=== PATIENT | male | born 1945 | race Caucasian/White ===

== ENCOUNTER → 2018-05-03 | Outpatient (CLI) | payer MEDICARE ==
[2018-05-03 11:59] LABS: HGB 15.3 gm/dL (13.0-17.5); MCH 30.2 pg (25.0-35.0); MCHC 32.5 g/dL (31.0-37.0); MCV 92.9 fL (80.0-100.0); Mean Platelet Volume 6.7; Platelet Count 227 k/uL (150-450); RBC 5.06 m/uL (4.30-5.90); WBC 4.8 k/uL (3.8-10.6)
[2018-05-03 12:00] LABS: Appearance,Urine Clear (Clear); Bilirubin,Urine Negative (Negative); Blood,Urine Negative (Negative); Color,Urine Yellow; Glucose,Urine (UA) Negative (Negative); Ketones,Urine Negative (Negative); Leukocyte Esterase,Urine Negative (Negative); Nitrite,Urine Negative (Negative); PH, Urine 5.5 (5.0-8.0); Partial Thromboplastin Time 24.9 sec (22.0-30.0); Protein,Urine Negative (Negative); Prothrombin Time 9.8 sec (9.0-12.0); Specific Gravity,Urine 1.023 (1.001-1.035); Urobilinogen,Urine <2.0 mg/dL (<2.0)
[2018-05-03 12:10] LABS: ALT 34 U/L (21-72); AST 24 U/L (17-59); Albumin 3.9 g/dL (3.5-5.0); Alkaline Phosphatase 67 U/L (38-126); Anion Gap 8 mmol/L; Blood Urea Nitrogen 20 mg/dL (9-20); Calcium 9.4 mg/dL (8.4-10.2); Carbon Dioxide 29 mmol/L (22-30); Chloride 104 mmol/L (98-107); Glucose 90 mg/dL (74-99); Potassium 4.4 mmol/L (3.5-5.1); Sodium 141 mmol/L (137-145); Total Bilirubin 0.7 mg/dL (0.2-1.3); Total Protein 6.4 g/dL (6.3-8.2)
== END | disposition home or self-care (01) ==
LOC: LABPAT 10:11
PROVIDERS: ATTEND Orthopaedic Surgery
DX: Z01.812 Encounter for preprocedural laboratory examination (principal); Z79.01 Long term (current) use of anticoagulants
CPT/HCPCS: 36415; 80053; 81003; 85027; 85610; 85730; 87070

== ENCOUNTER 2018-05-30 10:37 | Inpatient (IN) | payer MEDICARE ==
[2018-05-11 11:35] VITALS: BMI 28.7
[~2018-05-30 10:37] MED LIST: ACETAMINOPHEN TAB 500 MG TAB PO ONE; DEXAMETHASONE SOD PHOSPHATE 10 MG/ML 1 ML VIAL IV ONE; HYDROmorphone 0.5 MG/0.5 ML SYRINGE IVP PRN; MELOXICAM 7.5 MG TAB PO ONE; MIDAZOLAM 2 MG/2 ML VIAL IV PRN; ONDANSETRON 4 MG/2 ML VIAL IVP ONE; ROPIVACAINE 246.25 MG, EPINEPHrine 0.5 MG, KETOROLAC 30 MG, cloNIDine HCL/PF 80 MCG, WA... MISCELLANE ONE; TRANEXAMIC ACID 1,000 MG in SODIUM CHLORIDE 0.9% 50 ML IVPB ONE; ceFAZolin IN SWFI 2 GM/20 ML SYRINGE IVP ONE
[2018-05-30] MEDS ORDERED: ROPIVACAINE 246.25 MG, EPINEPHrine 0.5 MG, KETOROLAC 30 MG, cloNIDine HCL/PF 80 MCG, WA... MISCELLANE ONE ×5 (10:40)
[2018-05-30] MEDS ORDERED: LIDOCAINE 1% 20 ML VIAL (10MG/ML) FOR IV START INTRADERMA ONE (13:31)
[2018-05-30] MEDS: LACTATED RINGERS 1,000 ML IV SCH (13:32)
[2018-05-30 13:35] LABS: Glucose,Whole Blood 97 mg/dL (75-99)
[2018-05-30] MEDS ORDERED: MIDAZOLAM 2 MG/2 ML VIAL IVP ONE (13:46)
[2018-05-30] MEDS ORDERED: fentaNYL (PF) 50 MCG/ML 2 ML AMP IVP ONE (13:46)
[2018-05-30] MEDS ORDERED: MAGNESIUM HYDROXIDE 2,400 MG/10 ML CUP PO PRN (14:08)
[2018-05-30] MEDS ORDERED: HYDROmorphone 1 MG/ML 1 ML SYRINGE IVP PRN ×3 (14:08)
[2018-05-30] MEDS ORDERED: NA PHOS,M-B/NA PHOS,DI-BA 133 ML ENEMA RECTAL PRN (14:08)
[2018-05-30] MEDS ORDERED: HYDROcodone/APAP 5-325MG 1 EACH TAB PO PRN ×2 (14:08)
[2018-05-30] MEDS ORDERED: hydrOXYzine PAMOATE 25 MG CAP PO PRN (14:08)
[2018-05-30] MEDS ORDERED: BISACODYL 10 MG SUPP RECTAL PRN (14:08)
[2018-05-30] MEDS ORDERED: NALOXONE 0.4 MG/ML 1 ML VIAL IV PRN (14:08)
[2018-05-30] MEDS ORDERED: ONDANSETRON 4 MG/2 ML VIAL IVP PRN (14:08)
[2018-05-30] MEDS ORDERED: DIAZEPAM 5 MG TAB PO PRN ×2 (14:08)
[2018-05-30] MEDS ORDERED: ROPIVACAINE 1,100 MG, SODIUM CHLORIDE 0.9% 500 ML 330 ML MISCELLANE PRN ×2 (14:12)
--- NOTE | 2018-05-30 14:14 | P.ONQ ---
Anesthesiology Proc Note - PNB - Peripheral Nerve Block Performed Right Adductor Canal Infusion Time Out Performed: Yes Procedure Start Time: 13:44 Indication: Acute Post-Operative Pain, Analgesia Specifically requested for management of pain by DrMaryam: Man Bernal Sedation Type: Sedate with meaningful contact maintained Preparation: Sterile Prep Position: Supine Catheter Depth at Skin (cm): 8 Catheter: Indwelling Needle Types: Other (see comment) (Pajunk) Needle Size: 100mm (4") Needle Gauge: 18 Technique: Ultrasound Injectate: 0.5% Ropivacaine (see comment for volume) (20 cc) Blood Aspirated: No Pain Paresthesia on Injection Noted: No Resistance on Injection: Normal Events: Uneventful and Well Tolerated
[2018-05-30] MEDS ORDERED: SODIUM CHLORIDE 0.9% 100 ML BAG ONE (14:39)
[2018-05-30] MEDS ORDERED: TRANEXAMIC ACID 1,000 MG/10 ML VIAL ONE (14:39)
[2018-05-30] MEDS ORDERED: fentaNYL (PF) 50 MCG/ML 2 ML AMP ONE (14:39)
[2018-05-30] MEDS ORDERED: ePHEDrine SULFATE/0.9% NACL/PF 50 MG/5 ML SYRINGE IV ONE (14:39)
[2018-05-30] MEDS ORDERED: MIDAZOLAM 2 MG/2 ML VIAL ONE (14:39)
[2018-05-30] MEDS ORDERED: PROPOFOL 10 MG/ML 20 ML VIAL IV ONE (14:39)
[2018-05-30] MEDS ORDERED: ceFAZolin 3,000 MG in SODIUM CHLORIDE 0.9% IRRIGATIO 3,000 ML IRRIGATION ONE (15:08)
[2018-05-30] MEDS ORDERED: LACTATED RINGERS 1,000 ML IV ONE (15:44)
--- NOTE | 2018-05-30 15:50 | P.OP ---
Date of Procedure: 05/30/18 Preoperative Diagnosis: Severe osteoarthritis right knee Postoperative Diagnosis: Severe osteoarthritis right knee Procedure(s) Performed: Right total knee arthroplasty Implants: Camilo [employer] Nephew Oxinium femoral component size 7, right Camilo [employer] Nephew Ava II right nonporous tibial baseplate size 7 Camilo [employer] Nephew size 11 mm Legion XLPE dished articular insert, size 7-8 Camilo [employer]hew Ava II resurfacing patellar component, 35 mm All components were cemented using Galo bone cement.. The articulation is Oxinium on polyethylene. Anesthesia: spinal Surgeon: Man Bernal Agile Tester #1: Arely Daly Estimated Blood Loss (ml): 50 Pathology: other (Bone and cartilage) Condition: stable Disposition: PACU Indications for Procedure: After failure of conservative treatment we discussed the surgical and nonsurgical treatment options at length. Patient wishes to proceed with a total knee arthroplasty. Complications specific to this procedure were discussed at length, including but not limited to infection, bleeding, stiffness , and nerve injury. Patient is aware of all these complications and informed consent was obtained Operative Findings: The operative findings are consistent with severe osteoarthritis of the right knee Description of Procedure: Patient was seen in the preoperative area consent was reviewed and operative site was marked with a skin marker. An adductor canal pain catheter was placed by anesthesia in the preoperative area. Patient was then brought to the operating room and given preoperative antibiotics intravenously. A spinal anesthetic was administered by the anesthesia department. A tourniquet was placed on the upper thigh and the lower extremity was prepped and draped in usual sterile fashion. A gram of transexamic acid was given. A universal timeout was then performed which confirmed the patient's name, surgical site, ALLERGIES, and consent. The lower extremity was then exsanguinated and tourniquet was inflated to 250 mmHg. A standard and anterior midline approach to the knee was performed. The skin and subcutaneous tissue was dissected down to the patellar tendon. A medial parapatellar arthrotomy was then performed. The knee was then extended, the patellar was everted, and the knee was again flexed. Anterior horns of both menisci were excised, and a release was performed to the posterior medial aspect of the knee. On gross visual inspection, there was complete loss of articular cartilage in the medial and patellofemoral joint spaces. There was also significant cartilage damage in the lateral compartment. There were multiple periarticular osteophytes which were then removed with a Ronguer. The femoral canal was then opened with the appropriate drill, and the intramedullary femoral cutting guide was then placed and set for 4 of valgus. The distal femoral cutting block was then pinned in place, and the distal femur was then cut. The cutting block was then removed and the cut was checked for flatness. Next, the sizing guide was then placed and set for 3 external rotation based off of the epicondylar axis and Whitesides line. After the femur was sized, the appropriate 4-in-1 cutting block was then pinned in place. The anterior condyles were cut without notching. The posterior and chamfer cuts were performed while protecting the collateral ligaments. The cutting block was then removed, and the femoral canal was plugged with autologous bone. Attention was then directed to the tibia. The remaining ACL was removed with a Ronguer, and the tibia was then gently subluxed forward with a large bent knee retractor. Any remaining menisci was excised. The posterior lateral corner was cauterized in order to cauterize the lateral geniculate artery. The extra medullary tibial cutting guide was then placed, set for the appropriate rotation , slope, and depth of resection. The proximal tibia cutting guide was then pinned in place. Proximal tibia was then cut and sized. Next trials were then placed with the appropriate-sized insert. The knee was able to fully extend and flex to 130 and was stable throughout all range of motion. The knee was then extended, patella everted. Patella was then measured, and then using an osteotomy guide, the patella was cut at the appropriate level. The patella was then measured and drilled and the patella trial was then placed. The knee was then taken through range of motion with the patella trial and the patella tracked normally. The knee was then extended patella trial was then removed and the patella was everted. Knee was then flexed and lug holes were drilled through the femoral trial and the femoral trial was then removed. The tibial was then exposed, and the tibial broach guide was then pinned in place after it was set for the appropriate rotation to allow for the most coverage without overhang. The tibia was then reamed and broached. The cut surfaces of bone were then irrigated with pulsatile lavage. The posterior structures were injected with the ropivacaine solution. The knee was also irrigated with Irrisept solution. The components were then opened, the cement was mixed, and the components were then cemented in place. The cement was allowed to harden with the knee in full extension. While the cement was hardening, the remaining soft tissues were then injected with a ropivacaine solution, which consisted of 246.25 mg of ropivacaine, 0.5 mg of epinephrine, 30 mg of Toradol, 80 g of clonidine, and 48.45 mL of sterile water, for a total of 100 mL of fluid injected. After the cemented hardened. The tourniquet was released, and hemostasis was obtained. A second gram of transexamic acid was given. The knee was again irrigated. The knee was again taken through range of motion and found to be stable throughout all range of motion of 0-130 , and the patella tracked normally. The fascia was then closed with #2 strata fix suture. The subcutaneous tissue was closed with 3-0 Vicryl and 3-0 strata fix. Dermabond glue was used for the skin and placed with the knee in flexion. The patient was placed in a sterile silver dressing. Patient was then transferred to recovery room in stable condition. The tourist information assistant SETH Orta was required due the complexity surgery and the need for a skilled operations manager assistant. She assisted in positioning, draping, retraction, and closure of the wound.
--- NOTE | 2018-05-30 17:33 | XR ---
PROCEDURE: XR knee limited RT - 2 views DATE AND TIME: 05/30/2018 4:46 PM CLINICAL INDICATION: PHH Evaluation for Postop abnormality and alignment TECHNIQUE: Portable AP and crosstable lateral views COMPARISON: None FINDINGS: The TKR appears anatomic in its positioning and alignment. Postprocedure change appreciated . No unexpected findings. IMPRESSION: Postoperative.
[2018-05-30] MEDS: SODIUM CHLORIDE 0.9% 1,000 ML IV SCH (17:45)
[2018-05-30] MEDS ORDERED: SENNOSIDES-DOCUSATE SODIUM 1 EACH TAB PO SCH (21:00)
[2018-05-30] MEDS: ASPIRIN 325 MG TAB PO SCH (21:20)
[2018-05-30] MEDS: ceFAZolin IN SWFI 2 GM/20 ML SYRINGE IVP SCH (21:21)
[2018-05-31] MEDS: ceFAZolin IN SWFI 2 GM/20 ML SYRINGE IVP SCH (05:24)
[2018-05-31] MEDS: SODIUM CHLORIDE 0.9% 1,000 ML IV SCH (05:39)
[2018-05-31] MEDS: LACTATED RINGERS 1,000 ML IV SCH (05:41)
[2018-05-31] MEDS: ASPIRIN 325 MG TAB PO SCH (07:17)
[2018-05-31] MEDS ORDERED: MELOXICAM 7.5 MG TAB PO SCH (09:00)
[2018-05-31 09:01] LABS: Basophils % (A) 0 %; Eosinophils % (A) 0 %; HCT 41.3 % (39.0-53.0); HGB 13.5 gm/dL (13.0-17.5); Lymphocytes # (A) 1.1 k/uL (1.0-4.8); Lymphocytes % (A) 11 %; MCH 30.4 pg (25.0-35.0); MCHC 32.6 g/dL (31.0-37.0); MCV 93.5 fL (80.0-100.0); Mean Platelet Volume 7.2; Monocytes # (A) 0.6 k/uL (0-1.0); Monocytes % (A) 6 %; Neutrophils % (A) 83 %; Platelet Count 214 k/uL (150-450); RBC 4.42 m/uL (4.30-5.90); RDW 13.6 % (11.5-15.5); WBC 10.8 k/uL (3.8-10.6)
[2018-05-31 09:16] VITALS: BP 128/76; PULSE 74; RESP 18; TEMP 98.1
--- NOTE | 2018-05-31 11:59 | P.PN ---
Progress Note - Text Anesthesia POD 1. Patient is status post right TKR under spinal anesthesia with a right adductor canal catheter placed for postoperative pain relief. With ropivacaine 0.2% running at 8 cc's per hour, the patient's VAS is (1, 4). Catheter site is clean dry and intact.
[2018-05-31] MEDS ORDERED: VIT A,C & E-LUTEIN-MINERALS 1 EACH TAB PO SCH (12:00)
--- NOTE | 2018-05-31 13:05 | P.CONS ---
History of Present Illness - Reason for Consult Consult date: 05/31/18 Medical management - History of Present Illness This is a 72-year-old male patient of Dr. Bernard with past medical history of COPD, gastroesophageal reflux disease, hyperlipidemia, borderline diabetes, osteoarthritis. Patient has been admitted to the hospital under the care of Dr. Bernal status post right total knee arthroplasty. Patient has Q pump in place for pain control. Patient states his pain is well controlled at this time. He has worked with physical therapy and has done well with this and is scheduled for discharge home today. His breathing status is currently stable and there is no COPD exacerbation. Vital signs are stable, patient has been afebrile, pulse ox 93% on room air. Review of Systems All systems: negative Constitutional: Denies chills, Denies fatigue, Denies fever, Denies lethargy, Denies malaise, Denies poor appetite, Denies sweats, Denies weight loss Eyes: denies blurred vision, denies pain Ears, nose, mouth and throat: Denies headache, Denies sore throat Cardiovascular: Denies chest pain, Denies decreased exercise tolerance, Denies dyspnea on exertion, Denies lightheadedness, Denies shortness of breath, Denies syncope Respiratory: Denies cough, Denies cough with sputum, Denies dyspnea, Denies excessive sputum, Denies hemoptysis, Denies home oxygen, Denies wheezing Gastrointestinal: Denies abdominal pain, Denies diarrhea, Denies loss of appetite, Denies nausea, Denies vomiting Genitourinary: Denies dysuria Musculoskeletal: Denies frequent falls, Denies gait dysfunction, Denies myalgias Integumentary: Reports wounds, Denies pruritus, Denies rash Neurological: Denies numbness, Denies weakness Psychiatric: Denies anxiety, Denies depression Endocrine: Denies fatigue, Denies weight change Past Medical History Past Medical History: COPD, GERD/Reflux, Hyperlipidemia, Osteoarthritis (OA) Additional Past Medical History / Comment(s): borderline diabetes,Other HX: Arthiritis bilateral knees and hands, R arm fx at age 5yrs, varicose veins. History of Any Multi-Drug Resistant Organisms: None Reported Past Surgical History: Heart Catheterization, Orthopedic Surgery Additional Past Surgical History / Comment(s): Right total knee arthroplasty, COLONOSCOPY with benign polypectomy, ccath-normal, circ, vasectomy,lt hip replacement Past Anesthesia/Blood Transfusion Reactions: No Reported Reaction Additional Past Anesthesia/Blood Transfusion Reaction / Comm: no hx blood transfusion Past Psychological History: No Psychological Hx Reported Additional Psychological History / Comment(s): Pt resides with his spouse. He is independent. He uses no assistive device. He drives. Smoking Status: Former smoker Past Alcohol Use History: Occasional Additional Past Alcohol Use History / Comment(s): QUIT SMOKING 05/2014,smoked approx 40 yrs-1ppd. Patient uses marijuana many years ago but none recently. He drinks alcohol occasionally. He served in [employer]. Past Drug Use History: None Reported - Past Family History Brother(s) Family Medical History: Myocardial Infarction (IA) Additional Family Medical History / Comment(s): Patient has 1 brother that at age 46 from a massive myocardial infarction. He states he had obesity and also diabetes. He has one older brother with no major medical problems. Patient does not have any sisters. Mother Family Medical History: Osteoarthritis (OA) Additional Family Medical History / Comment(s): Mother had colitis. She at age 92 yrs. Father Family Medical History: Myocardial Infarction ([place]) Additional Family Medical History / Comment(s): Father had a pacer and history of dementia. He around age 82-84yrs. Son(s) Additional Family Medical History / Comment(s): Patient has 4 sons with no major medical problems. Medications and Allergies Home Medications Medication Instructions Recorded Confirmed Type Aspirin 81 mg PO DAILY 05/15/15 05/30/18 History Atorvastatin [Lipitor] 40 mg PO DAILY 05/15/15 05/30/18 History Tiotropium [place] [Spiriva] 1 cap INHALATION RT-DAILY 05/15/15 05/30/18 History Ascorbic Acid [Vitamin C] 1,000 mg PO DAILY 05/11/18 05/30/18 History Budesonide/Formoterol Fumarate 2 puff INHALATION RT-BID 05/11/18 05/30/18 History [Symbicort 160-4.5 Mcg Inhaler] Calcium Citrate/Vitamin D3 1 tab PO BID 05/11/18 05/30/18 History [Calcitrate + Vit D Caplet] Multivitamins, Thera [Multivitamin 1 tab PO DAILY 05/11/18 05/30/18 History (formulary)] Vitamin E 100 unit PO DAILY 05/11/18 05/30/18 History Vits A,C,E/Lutein/Minerals 1 tab PO DAILY 05/11/18 05/30/18 History [Ocuvite with Lutein Tablet] Allergies Allergy/AdvReac Type Severity Reaction Status Date / Time No Known Allergies Allergy Verified 05/30/18 16:10 Physical Exam Vitals: Vital Signs Temp Pulse Pulse Resp BP Pulse Ox 05/31/18 07:00 98.1 F 74 18 128/76 93 L 05/31/18 00:25 97.9 F 81 16 124/68 92 L 05/30/18 19:08 78 168/95 90 L 05/30/18 18:55 89 144/92 89 L 05/30/18 18:38 81 153/102 88 L 05/30/18 18:23 86 148/78 88 L 05/30/18 18:08 84 142/83 91 L 05/30/18 17:53 83 138/91 94 L 05/30/18 17:38 97.9 F 82 18 121/78 92 L 05/30/18 16:56 77 16 124/70 96 05/30/18 16:41 74 16 126/68 100 05/30/18 16:26 97.5 F L 75 17 108/59 96 05/30/18 14:10 77 18 141/73 96 05/30/18 13:11 98.4 F 79 18 153/87 94 L Intake and Output 05/30/18 05/31/18 05/31/18 22:59 06:59 14:59 Intake Total 863.5 600 Output Total 50 Balance 813.5 600 Intake: IV 101 Intake, IV Titration 262.5 600 Amount Sodium Chloride 0.9% 1, 262.5 600 000 ml @ 75 mls/hr IV . [id number] CARLITOS Rx#:[id number] Oral 500 Output: Estimated Blood Loss 50 Other: Voiding Method Toilet # Voids 1 3 Weight 90.718 kg Gen: This is a 72-year-old male. He is sitting up in a recliner the bedside and appears to be comfortable and in no acute distress. HEENT: Head is atraumatic, normocephalic. Pupils equal, round. Sclerae is anicteric. NECK: Supple. No JVD. No lymphadenopathy. No thyromegaly. LUNGS: Clear to auscultation. No wheezes or rhonchi. No intercostal retractions. HEART: Regular rate and rhythm. No murmur. ABDOMEN: Soft. Bowel sounds are present. No masses. No tenderness. EXTREMITIES: No pedal edema. No calf tenderness. NEUROLOGICAL: Patient is awake, alert and oriented x3. Cranial nerves 2 through 12 are grossly intact. Results CBC & Chem 7: 05/31/18 07:06 Labs: Abnormal Lab Results - Last 24 Hours (Table) 05/31/18 Range/Units 07:06 WBC 10.8 H (3.8-10.6) k/uL Neutrophils # 9.0 H (1.3-7.7) k/uL Assessment and Plan Plan: 1. Osteoarthritis status post right total knee arthroplasty in the care of Dr. Bernal. Continue current pain management, physical therapy, activity, DVT prophylaxis is aspirin. Patient is scheduled for discharge later today. He has had no postop complications. 2. COPD stable without exacerbation. 3. Hyperlipidemia. 4. Borderline diabetes. Discharge plan: Home with [facility] Impression and plan of care have been directed as dictated by the signing physician. Aracelis Goyal nurse practitioner acting as scribe for signing physician.
--- NOTE | 2018-05-31 14:03 | P.DS ---
Providers Date of admission: 05/30/18 12:32 Expected date of discharge: 05/31/18 Attending physician: Man Bernal Consults: 05/30/18 14:08 Consult Physician Routine Consulting Provider: Lily Rooney Consult Reason/Comments: medical management Do you want consulting provider notified?: Yes Primary care physician: Ida Burrwood - Discharge Diagnosis(es) (1) Primary osteoarthritis of right knee Current Visit: Yes Status: Acute (2) S/P total knee arthroplasty Current Visit: Yes Status: Acute Hospital Course: This is a 72-year-old male with known history of degenerative arthritis of the right knee. The patient presents for evaluation. After discussion and consideration patient elects to proceed with total knee arthroplasty. The patient is seen preoperatively by Dr. Bernal and medically cleared for surgery by their primary care physician. Patient is admitted to [facility] on 05/30/2018 for total knee arthroplasty. The procedures performed without complication or sequelae. The patient is doing well postoperatively. Labs and vital signs are stable on day of discharge. On day of discharge patient's knee incision is healing well. There is minimal erythema. There is no drainage noted at this time. There is minimal soft tissue swelling to the knee. Patient has full foot and ankle motion without difficulty or pain. Neurovascular status to the right lower extremity is intact. Patient is discharged home in good condition. Please see med rec for accurate list of home medications. Plan - Discharge Summary Discharge Rx Participant: Yes New Discharge Prescriptions: New Aspirin 325 mg PO BID #60 tab HYDROcodone/APAP 5-325MG [[place] 5-325] 1 - 2 tab PO Q4-6H PRN #84 tab PRN Reason: Pain Sennosides [Senokot] 1 tab PO BID #60 tablet No Action Tiotropium [place] [Spiriva] 1 cap INHALATION RT-DAILY Atorvastatin [Lipitor] 40 mg PO DAILY Aspirin 81 mg PO DAILY Budesonide/Formoterol Fumarate [Symbicort 160-4.5 Mcg Inhaler] 2 puff INHALATION RT-BID Calcium Citrate/Vitamin D3 [Calcitrate + Vit D Caplet] 1 tab PO BID Multivitamins, Thera [Multivitamin (formulary)] 1 tab PO DAILY Ascorbic Acid [Vitamin C] 1,000 mg PO DAILY Vits A,C,E/Lutein/Minerals [Ocuvite with Lutein Tablet] 1 tab PO DAILY Vitamin E 100 unit PO DAILY Discharge Medication List Aspirin 81 mg PO DAILY 05/15/15 [History] Atorvastatin [Lipitor] 40 mg PO DAILY 05/15/15 [History] Tiotropium [place] [Spiriva] 1 cap INHALATION RT-DAILY 05/15/15 [History] Ascorbic Acid [Vitamin C] 1,000 mg PO DAILY 05/11/18 [History] Budesonide/Formoterol Fumarate [Symbicort 160-4.5 Mcg Inhaler] 2 puff INHALATION RT-BID 05/11/18 [History] Calcium Citrate/Vitamin D3 [Calcitrate + Vit D Caplet] 1 tab PO BID 05/11/18 [ History] Multivitamins, Thera [Multivitamin (formulary)] 1 tab PO DAILY 05/11/18 [History ] Vitamin E 100 unit PO DAILY 05/11/18 [History] Vits A,C,E/Lutein/Minerals [Ocuvite with Lutein Tablet] 1 tab PO DAILY 05/11/18 [History] Aspirin 325 mg PO BID #60 tab 05/31/18 [Rx] HYDROcodone/APAP 5-325MG [[place] 5-325] 1 - 2 tab PO Q4-6H PRN #84 tab 05/31/18 [ Rx] Sennosides [Senokot] 1 tab PO BID #60 tablet 05/31/18 [Rx] Follow up Appointment(s)/Referral(s): Ida Bernard MD [Primary Care Provider] - 1 Week [facility], [NON-STAFF] - Man Bernal DO [Doctor of Osteopathic Medicine] - 2 Weeks Activity/Diet/Wound Care/Special Instructions: Please call [facility] once home to arrange delivery of CPM: . Weightbearing as tolerated with walker Leave dressing intact. Dressing may be removed by home care nurse in 10 days. May shower with dressing on. Follow-up with [facility] in 2 weeks, please call with any questions or concerns [phone].
[2018-05-31] MEDS ORDERED: SYMBICORT 160-4.5 MCG INHALER INHALATION SCH (20:00)
[2018-05-31] MEDS ORDERED: ATORVASTATIN 40 MG TAB PO SCH (21:00)
[2018-06-01] MEDS ORDERED: IPRATROPIUM 0.5 MG/2.5 ML NEBU INHALATION SCH (08:00)
== END 2018-05-31 15:23 | disposition home or self-care (01) | DRG 470 ==
LOC: 2ORMAIN 12:32 → 4SSUR 16:29
PROVIDERS: ADMIT Orthopaedic Surgery; ATTEND Orthopaedic Surgery
PROC: 0SRC069 Replacement of Right Knee Joint with Oxidized Zirconium on Polyethylene Synthetic Substitute, Cemented, Open Approach (ICD-10-PCS; principal; 2018-05-30 14:45)
DX: M17.11 Unilateral primary osteoarthritis, right knee (principal); R73.03 Prediabetes; E78.5 Hyperlipidemia, unspecified; J44.9 Chronic obstructive pulmonary disease, unspecified; K21.9 Gastro-esophageal reflux disease without esophagitis; Z79.82 Long term (current) use of aspirin; Z79.51 Long term (current) use of inhaled steroids; Z87.891 Personal history of nicotine dependence; Z79.899 Other long term (current) drug therapy; Z82.49 Family history of ischemic heart disease and other diseases of the circulatory system; Z83.3 Family history of diabetes mellitus
CPT/HCPCS: 85025; 88300

== ENCOUNTER → 2021-05-09 | Outpatient (CLI) | payer MEDICARE ==
--- NOTE | 2021-05-09 16:25 | US ---
EXAMINATION TYPE: US venous doppler duplex LE LT DATE OF EXAM: 05/09/2021 4:09 PM COMPARISON: NONE CLINICAL HISTORY: R60.9 EDEMA. Edema. No hx of DVT. Patient takes baby aspirin. SIDE PERFORMED: Left TECHNIQUE: The lower extremity deep venous system is examined utilizing real time linear array sonog antonio with graded compression, doppler sonography and color-flow sonography. VESSELS IMAGED: Common Femoral Vein Deep Femoral Vein Greater Saphenous Vein * Femoral Vein Popliteal Vein Small Saphenous Vein * Proximal Calf Veins (* superficial vessels) Left Leg: No evidence of DVT in veins imaged at this time. Satisfactory blood flow, phasicity, and compressibility in the left lower extremity. IMPRESSION: No ultrasound evidence for acute DVT in the left lower extremity.
== END | disposition home or self-care (01) ==
LOC: RADUSWWP 15:51
PROVIDERS: ATTEND Internal Medicine Geriatric Medicine
DX: R60.9 Edema, unspecified (principal)

== ENCOUNTER → 2024-07-03 | Outpatient (CLI) | payer MEDICARE ==
[2024-07-03 20:39] LABS: HCT 39.1 % (39.6-50.0); HGB 12.4 g/dL (13.0-17.0); MCH 28.4 pg (27.0-32.0); MCHC 31.7 g/dL (32.0-37.0); MCV 89.7 FL (80.0-97.0); Mean Platelet Volume 9.5 FL (9.5-12.2); NRBC Per 100 WBC 0 X 10*3/uL (0.00-0.01); Platelet Count 235 X 10*3/uL (140-440); RBC 4.36 X 10*6/uL (4.40-5.60); RDW 14.7 % (11.5-14.5); WBC 6.73 X 10*3/uL (4.50-10.00)
[2024-07-03 21:20] LABS: Prothrombin Time 11.1 sec (10.0-12.5)
[2024-07-03 22:03] LABS: ALT 25 U/L (10-49); AST 21 U/L (14-35); Albumin 4.2 g/dL (3.8-4.9); Albumin/Globulin Ratio 2.62 Ratio (1.60-3.17); Alkaline Phosphatase 85 U/L (41-126); Blood Urea Nitrogen 19.9 mg/dL (9.0-27.0); Calcium 9.1 mg/dL (8.7-10.3); Carbon Dioxide 24.8 mmol/L (21.6-31.8); Chloride 107 mmol/L (96-109); Globulin 1.6 g/dL (1.6-3.3); Glucose 109 mg/dL (70-110); Potassium 4.2 mmol/L (3.5-5.5); Sodium 145 mmol/L (135-145); Total Bilirubin 0.4 mg/dL (0.3-1.2); Total Protein 5.8 g/dL (6.2-8.2)
== END | disposition home or self-care (01) ==
LOC: LABPAT 14:30
PROVIDERS: ATTEND Orthopaedic Surgery
DX: Z01.812 Encounter for preprocedural laboratory examination (principal); M16.11 Unilateral primary osteoarthritis, right hip; Z22.322 Carrier or suspected carrier of Methicillin resistant Staphylococcus aureus
CPT/HCPCS: 80053; 83036; 84443; 85027; 85610; 85730; 86850; 86900; 86901; 87070

== ENCOUNTER 2024-07-10 05:34 | Day surgery (SDC) | payer MEDICARE ==
[2024-07-04 15:52] VITALS: BMI 28.7
[~2024-07-10 05:34] MED LIST changes: -ACETAMINOPHEN TAB 500 MG TAB PO ONE; -DEXAMETHASONE SOD PHOSPHATE 10 MG/ML 1 ML VIAL IV ONE; -HYDROmorphone 0.5 MG/0.5 ML SYRINGE IVP PRN; -MELOXICAM 7.5 MG TAB PO ONE; -MIDAZOLAM 2 MG/2 ML VIAL IV PRN; -ONDANSETRON 4 MG/2 ML VIAL IVP ONE; -ROPIVACAINE 246.25 MG, EPINEPHrine 0.5 MG, KETOROLAC 30 MG, cloNIDine HCL/PF 80 MCG, WA... MISCELLANE ONE; +TRANEXAMIC 1,000 MG/100ML-NACL 1,000 MG in SALINE 1 100ML.BAG IVPB PRN; -TRANEXAMIC ACID 1,000 MG in SODIUM CHLORIDE 0.9% 50 ML IVPB ONE; -ceFAZolin IN SWFI 2 GM/20 ML SYRINGE IVP ONE
[2024-07-10] MEDS ORDERED: HYDROmorphone 0.5 MG/0.5 ML SYRINGE IVP PRN ×4 (05:49→08:39)
[2024-07-10 06:08] LABS: Glucose,Whole Blood 128 mg/dL (70-110)
[2024-07-10] MEDS: IV FLUID CONTINUATION 1,000 ML IV ONE ×2 (06:16)
[2024-07-10] MEDS: GABAPENTIN 300 MG CAP PO PRN (06:17)
[2024-07-10] MEDS: MELOXICAM 7.5 MG TAB PO PRN (06:17)
[2024-07-10] MEDS: LACTATED RINGERS 1,000 ML IV SCH (06:17)
[2024-07-10] MEDS: DEXAMETHASONE SOD PHOSPHATE 4 MG/ML 1 ML VIAL IV ONE (06:17)
[2024-07-10] MEDS: ACETAMINOPHEN TAB 500 MG TAB PO PRN (06:17)
[2024-07-10] MEDS: ONDANSETRON 4 MG/2 ML VIAL IVP ONE (06:17)
[2024-07-10] MEDS: MIDAZOLAM 2 MG/2 ML VIAL IV ONE (06:31)
[2024-07-10] MEDS ORDERED: fentaNYL (PF) 50 MCG/ML 2 ML AMP ONE (06:50)
[2024-07-10] MEDS ORDERED: GLYCOPYRROLATE 0.2 MG/ML 2 ML VIAL ONE (06:50)
[2024-07-10] MEDS ORDERED: ROPIVACAINE 5 MG/ML 30 ML VIAL ONE (06:50)
[2024-07-10] MEDS ORDERED: PROPOFOL 10 MG/ML 20 ML VIAL IV ONE (06:50)
[2024-07-10] MEDS ORDERED: MIDAZOLAM 2 MG/2 ML VIAL ONE (06:50)
[2024-07-10] MEDS ORDERED: DEXAMETHASONE SOD PHOSPHATE 4 MG/ML 1 ML VIAL ONE (06:50)
[2024-07-10] MEDS ORDERED: TRANEXAMIC 1,000 MG/100ML-NACL PREMIX BAG ONE (06:50)
[2024-07-10] MEDS: ceFAZolin 1,000 MG in SODIUM CHLORIDE 0.9% 1,000 ML IRRIGATION ONE (06:55)
[2024-07-10] MEDS: ROPIVACAINE 5 MG/ML 30 ML VIAL MISCELLANE ONE ×2 (07:27→08:07)
--- NOTE | 2024-07-10 08:11 | P.OP ---
Date of Procedure: 07/10/24 Preoperative Diagnosis: Severe osteoarthritis, right hip Postoperative Diagnosis: Severe osteoarthritis, right hip Procedure(s) Performed: Right total hip arthroplasty with a direct anterior approach Implants: [employer] Polarstem standard size 5 with a collar [employer] R3, 3 hole hemispherical acetabular shell, 56 mm [employer] Reflection 6.5 mm cancellus screws, 25 mm 2 [employer] R3, XLPE 20 acetabular liner [employer] Oxinium femoral head 36 mm, +4 All components were press-fit. The articulation is Oxinium on polyethylene. Anesthesia: spinal Surgeon: Man Bernal Sinter Machine Operator #1: Arely Daly Estimated Blood Loss (ml): 200 Pathology: none sent Condition: stable Disposition: PACU Indications for Procedure: After failure of conservative treatment we discussed the surgical and no nsurgical treatment options at length. Patient wishes to proceed with a total hip arthroplasty with a direct anterior approach. Complications specific to this procedure were discussed at length, including but not limited to infection, leg length discrepancy, dislocation, nerve injury, and fracture. Covid-19 was also discussed at length with the patient, and they are aware of the current policies and procedures. The patient was given the option of delaying surgery, but they elect to proceed knowing these risks. Patient is aware of all these complications and informed consent was obtained Operative Findings: The operative findings are consistent with severe osteoarthritis of the right hip Description of Procedure: The patient was seen and evaluated in the preoperative area and the consent was reviewed. The operative site was marked with a skin marker. The patient verified the procedure and operative site. A GAGE block was placed by anesthesia in the preoperative area. The patient was then brought to the operating room and given preoperative antibiotics intravenously. 1 g of Tranexamic acid was also given intravenously. A spinal anesthetic was administered by the anesthesia department. The patient was then placed on the [place] table with the bony prominences well-padded. The hip area was then prepped with a ChloraPrep solution and draped in the usual sterile fashion. A universal timeout was then performed, which confirmed the patient's name, surgical site, ALLERGIES, and procedure being performed on the consent. Next the incision site was located at 1 cm distal and 4 cm lateral to the anterior superior iliac spine. The skin and subcutaneous tissues were sharply incised. Incision was carefully dissected down to the fascia overlying the tensor fascia marquita muscle. This fascia was then incised in line with the muscle fibers. Care was taken to stay laterally in order to avoid injuring the lateral femoral cutaneous nerve. Next, using blunt finger dissection, the tensor fascia marquita muscle was dissected off its investing fascia. The muscle was then carefully retracted laterally with a cobra retractor over the lateral neck of the femur. Next, the circumflex vessels were identified and cauterized using the Aquamantis device. The anterior hip capsule was then exposed. The capsule was then opened and an inverted T fashion. The retractors were then placed intracapsularly. The retractors were maintained intracapsular throughout the procedure. The proximal femur was then visualized. Fluoroscopic x-rays were then taken in order to evaluate the preoperative leg lengths. A small amount of traction was placed on the leg. The femoral neck was then osteotomized at the appropriate level above the lesser trochanter. A small wedge of bone was then removed from the remaining femoral head. Next, using a corkscrew the femoral head was removed from the acetabulum. On gross visual inspection, the femoral head had complete loss of articular cartilage and multiple periarticular osteophytes. The femoral head was then measured. Attention was then turned to the acetabulum. The acetabulum was exposed and any remaining labrum was excised. Sequential reaming of the acetabulum was performed using fluoroscopic guidance until there was a good bed of bleeding cancellus bone. When the appropriate size was reached, a trial was then placed. The position and fit of the trial was checked with fluoroscopy. The trial was then removed. Then, using fluoroscopic guidance, the final implant was impacted at 20 of anteversion and 40 of abduction, and fully seated in the acetabulum. 2 screws were then placed in the acetabulum. Again fluoroscopy was used to check position of the screws. Next, the liner was then impacted, with a 20 elevated liner located in the anterior superior quadrant. Component locking was confirmed. Attention was then directed to the femur. With the aid of the [place] table, the femur was externally rotated to approximately 130, extended, and adducted under the opposite leg. A side hook was then placed under the proximal femur, and the side hook elevator was used to elevate the proximal femur while releasing the capsule. Retractors were then placed. A capsular release was performed, as well as a release of the conjoined tendon, which afforded excellent visualization of the proximal femur. Next, a box osteotome was used to lateralize the proximal femur. A collator hand was then used to locate the femoral canal. Sequential broaching was then performed with appropriate size which afforded excellent fixation in the proximal femur. A trial was then placed with appropriate head and neck, and the hip was gently reduced with the aid of the [place] table. Fluoroscopy was then used to check position of the components, as well as to evaluate the leg lengths and offset. The leg lengths and offset were measured as closely as possible to ensure stability of the hip. The hip was then gently dislocated and the trials were then removed. Final implants were then impacted and the hip was again reduced. Final fluoroscopic x-rays confirmed that the components were in anatomic position. The leg lengths and offset were measured and were found to coincide with the trial measurements. The hip was also taken through range of motion, and found to be stable. The hip was then copiously irrigated with antibiotic solution with pulsatile lavage. The hip was then irrigated with Irrisept solution. The soft tissues were then injected with a ropivacaine solution. A second dose of 1 g of Tranexamic acid was also given intravenously. The fascia was then closed with 2-0 strata fix suture. The subcutaneous tissue was closed with 3-0 Vicryl. The subcuticular tissue was closed with 3-0 moncryl suture. The skin was then closed with Exofin skin glue. After the glue and dried, and Optifoam silver impregnated dressing was applied. The patient was t hen transferred to the recovery room in stable condition. The server assistant SETH Orta was required due to the complexity of surgery, and the need for skilled manager surgical for positioning, draping, exposure, retraction, and closure of the wound.
--- NOTE | 2024-07-10 08:32 | FL ---
EXAMINATION TYPE: FL guidance operating room, XR Hip Limited RT DATE OF EXAM: 07/10/2024 8:23 AM COMPARISON: Pre Operative Images if available both CT/MRI or plain film CLINICAL INDICATION: Male, 78 years old with history of RIGHT HIP OSETOARTHRITIS; TECHNIQUE: FL guidance operating room, XR Hip Limited RT, multiple fluoroscopic images provided for p rocedure. Total fluoroscopy time: 25.7 seconds Total submitted images to PACS: 4 DAP: 1.4222 mGym2 Gycm2 uGym2 cGycm2 or equivalent. FINDINGS: Fluoroscopic images during internal fixation/arthroplasty demonstrate hardware in appropriate positio n. Hardware appears intact. No immediate complication identified. IMPRESSION: 1. No evidence for intraoperative complication. 2. Please see the operative/procedural note for further details. [facility], , 07/10/2024 8:30 AM
[2024-07-10] MEDS ORDERED: NALOXONE 0.4 MG/ML 1 ML VIAL IV PRN (08:39)
[2024-07-10] MEDS ORDERED: MAGNESIUM HYDROXIDE 2,400 MG/30 ML CUP PO PRN (08:39)
[2024-07-10] MEDS ORDERED: ONDANSETRON 4 MG/2 ML VIAL IVP PRN (08:39)
[2024-07-10] MEDS ORDERED: HYDROcodone/APAP 7.5-325MG 1 EACH TAB PO PRN (08:40)
[2024-07-10 09:54] LABS: Glucose,Whole Blood 141 mg/dL (70-110)
--- NOTE | 2024-07-10 10:11 | XR ---
EXAMINATION TYPE: XR Hip Limited RT DATE OF EXAM: 07/10/2024 9:40 AM COMPARISON: None CLINICAL INDICATION: Male, 78 years old with history of Status post hip surgery, assess surgical cat solano; PHH, pain TECHNIQUE: XR Hip Limited RT; Frontal view FINDINGS: Post arthroplasty changes, hardware is intact, alignment is appropriate. No evidence of fra cture. No evidence of any acute osseous pathology or joint dislocation. IMPRESSION: Hip arthroplasty with hardware intact and in appropriate alignment. No acute fracture. [facility], , 07/10/2024 10:09 AM
[2024-07-10] MEDS: SODIUM CHLORIDE 0.9% 1,000 ML IV SCH (10:49)
[2024-07-10] MEDS ORDERED: IPRATROPIUM-ALBUTEROL 3 ML NEB INHALATION PRN (11:38)
--- NOTE | 2024-07-10 12:23 | P.HPIM ---
History of Present Illness Patient pleasant 72-year-old male admitted for right hip arthroplasty. Patient is pain-free at this time patient denied any nausea vomiting abdominal pain fever chills patient does have a history of atrial fibrillation because of which patient is on metoprolol patient is on a very low-dose of metoprolol patient has mild sinus bradycardia. Patient is on also on anticoagulation with Eliquis 5 mg p.o. twice daily REVIEW OF SYSTEMS: All other systems are negative except those mentioned in the HPI PHYSICAL EXAMINATION: GENERAL: The patient is alert and oriented x3, not in any acute distress. Well developed, well nourished. HEENT: Pupils are round and equally reacting to light. EOMI. No scleral icterus. No conjunctival pallor. Normocephalic, atraumatic. No pharyngeal erythema. No thyromegaly. CARDIOVASCULAR: S1 and S2 present. No murmurs, rubs, or gallops. PULMONARY: Chest is clear to auscultation, no wheezing or crackles. ABDOMEN: Soft, nontender, nondistended, normoactive bowel sounds. No palpable organomegaly. MUSCULOSKELETAL: No joint swelling or deformity. Surgical site areas are packed EXTREMITIES: No cyanosis, clubbing, or pedal edema. NEUROLOGICAL: Gross neurological examination did not reveal any focal deficits. SKIN: No rashes. Assessment and plan -Mild sinus bradycardia: Patient is asymptomatic can resume low-dose of beta- ling. -Atrial fibrillation paroxysmal on anticoagulation which will be resumed -COPD without any acute exacerbation -Type 2 diabetes mellitus metformin will be resumed monitor blood sugars sliding scale insulin -Gastroesophageal reflux disease -Hyperlipidemia -Hip arthroplasty management as per primary service DVT prophylaxis: On Eliquis Past Medical History Past Medical History: Atrial Fibrillation, Asthma, COPD, Diabetes Mellitus, GERD/Reflux, Hyperlipidemia, Osteoarthritis (OA), Pneumonia Additional Past Medical History / Comment(s): Other HX: Arthiritis bilateral knees and hands, R arm fx at age 5yrs, Emphysema. Type II diabetic NIDDM. Has 30% lung function. History of Any Multi-Drug Resistant Organisms: None Reported Past Surgical History: Heart Catheterization, Joint Replacement, Orthopedic Surgery Additional Past Surgical History / Comment(s): Right total knee arthroplasty, COLONOSCOPY with benign polypectomy, ccath-normal, circ, vasectomy,lt hip replacement Past Anesthesia/Blood Transfusion Reactions: No Reported Reaction Additional Past Anesthesia/Blood Transfusion Reaction / Comment(s): no hx blood transfusion to date. Past Psychological History: No Psychological Hx Reported Additional Psychological History / Comment(s): Pt resides with his spouse. He is independent. He uses no assistive device. He drives. Smoking Status: Former smoker Past Alcohol Use History: Rare Additional Past Alcohol Use History / Comment(s): QUIT SMOKING 05/2014,smoked approx 40 yrs-1ppd. Patient usedmarijuana many years ago but none recently. He served in [employer]. Past Drug Use History: None Reported - Past Family History Brother(s) Family Medical History: Myocardial Infarction ([place]) Additional Family Medical History / Comment(s): Patient has 1 brother that at age 46 from a massive myocardial infarction. He states he had obesity and also diabetes. He has one older brother with no major medical problems. Patient does not have any sisters. Son(s) Additional Family Medical History / Comment(s): Patient has 4 sons with no major medical problems. Mother Family Medical History: Osteoarthritis (OA) Additional Family Medical History / Comment(s): Mother had colitis. She at age 92 yrs. Father Family Medical History: Myocardial Infarction ([place]) Additional Family Medical History / Comment(s): Father had a pacer and history of dementia. He around age 82-84yrs. Medications and Allergies Home Medications Medication Instructions Recorded Confirmed Type Tiotropium [place] [Spiriva] 1 cap INHALATION RT-DAILY 05/15/15 07/10/24 History Ascorbic Acid [Vitamin C] 1,000 mg PO QAM 05/11/18 07/10/24 History Budesonide/Formoterol Fumarate 2 puff INHALATION RT-BID 05/11/18 07/10/24 History [Symbicort 160-4.5 Mcg Inhaler] Calcium Citrate/Vitamin D3 1 tab PO QAM 05/11/18 07/10/24 History [Calcitrate + Vit D Caplet] Vits A,C,E/Lutein/Minerals 1 tab PO BID 05/11/18 07/10/24 History [Ocuvite with Lutein Tablet] Apixaban [Eliquis] 5 mg PO BID 07/04/24 07/10/24 History Budesonide [Pulmicort] 0.5 mg INHALATION QAM 07/04/24 07/10/24 History Metoprolol Tartrate [Lopressor] 12.5 mg PO BID 07/04/24 07/10/24 History Montelukast Sodium 10 mg PO HS 07/04/24 07/10/24 History Rosuvastatin [Crestor] 20 mg PO HS 07/04/24 07/10/24 History Spironolactone [Aldactone] 25 mg PO QAM 07/04/24 07/10/24 History metFORMIN HCL ER [Glucophage XR] 1,000 mg PO HS 07/04/24 07/10/24 History Ipratropium-Albuterol Nebulize 3 ml INHALATION QAM PRN 07/06/24 07/10/24 History [Duoneb 0.5 mg-3 mg/3 ml Soln] HYDROcodone/APAP 7.5-325MG [[place] 1 - 2 tab PO Q6H PRN #32 tab 07/10/24 Rx 7.5-325] Sennosides [Senokot] 2 tab PO DAILY PRN #60 tablet 07/10/24 Rx Allergies Allergy/AdvReac Type Severity Reaction Status Date / Time No Known Allergies Allergy Verified 07/10/24 05:49 Physical Exam Vitals: Vital Signs Temp Pulse Resp BP BP Pulse Ox 07/10/24 10:00 49 L 16 123/67 93 L 07/10/24 09:30 47 L 16 127/68 93 L 07/10/24 09:15 48 L 16 109/58 93 L 07/10/24 09:00 46 L 16 103/57 96 07/10/24 08:45 47 L 16 102/62 96 07/10/24 08:32 97.5 F L 48 L 14 98/56 98 07/10/24 06:37 57 L 16 137/66 96 07/10/24 06:00 97.9 F 64 16 164/76 95 07/10/24 05:50 22 Intake and Output 07/09/24 07/10/24 07/10/24 22:59 06:59 14:59 Intake Total 651 200 Output Total 200 Balance 651 0 Intake: IV 651 200 Output: Estimated Blood Loss 200 Other: Weight 91.9 kg 91.9 kg Results Labs: Abnormal Lab Results - Last 24 Hours (Table) 07/10/24 07/10/24 Range/Units 06:05 09:53 POC Glucose (mg/dL) 128 H 141 H (70-110) mg/dL Thrombosis Risk Factor Assmnt - Choose All That Apply Any of the Below Risk Factors Present?: Yes Each Factor Represents 1 point: Abnormal pulmonary function (COPD), Obesity (BMI >25), Serious lung disease incl. pneumonia (< 1month) Other Risk Factors: Yes Each Risk Factor Represents 2 Points: Major surgery Other congenital or acquired thrombophilia - If yes, enter type in comment: Yes Each Risk Factor Represents 5 Points: Elective major lower extremity arthoplasty Thrombosis Risk Factor Assessment Total Risk Factor Score: 10 Thrombosis Risk Factor Assessment Level: High Risk
--- NOTE | 2024-07-10 19:24 | P.ANPRN ---
Procedure Note - Anesthesia - Nerve Block Performed Right Nick Single Time Out Performed: Yes Date of Procedure: 07/10/24 Procedure Start Time: 06:31 Procedure Stop Time: 06:34 Location of Patient: PreOp Indication: Acute Post-Operative Pain, Requested by Surgeon Sedation Type: Sedate with meaningful contact maintained Preparation: Sterile Prep Position: Supine Needle Types: Pajunk Needle Gauge: 21 Ultrasound used to visualize needle placement: Yes Ultrasound used to observe medication spread: Yes Blood Aspirated: No Pain Paresthesia on Injection Noted: No Resistance on Injection: Normal Image Stored and Saved: Yes Events: Uneventful and Well Tolerated (Ropivacaine 0.5% 20 cc plus dexamethasone 4 mg)
[2024-07-10 20:08] LABS: Glucose,Whole Blood 224 mg/dL (70-110)
[2024-07-10] MEDS: metFORMIN 500 MG TAB PO SCH (20:35)
[2024-07-10] MEDS: ATORVASTATIN 40 MG TAB PO SCH (20:35)
[2024-07-10] MEDS: SENNOSIDES-DOCUSATE SODIUM 1 EACH TAB PO SCH (20:35)
[2024-07-10] MEDS: HYDROcodone/APAP 7.5-325MG 1 EACH TAB PO PRN (20:35)
[2024-07-10] MEDS ORDERED: APIXABAN 5 MG TAB PO SCH (21:00)
[2024-07-10] MEDS: SYMBICORT 160-4.5 MCG INHALER INHALATION SCH (21:45)
[2024-07-11 06:28] LABS: Glucose,Whole Blood 129 mg/dL (70-110)
[2024-07-11] MEDS: ASCORBIC ACID 500 MG TAB PO SCH (08:17)
[2024-07-11] MEDS: APIXABAN 5 MG TAB PO SCH (08:18)
[2024-07-11] MEDS: METOPROLOL TARTRATE 12.5 MG TAB PO SCH (08:18)
[2024-07-11] MEDS: IPRATROPIUM 0.5 MG/2.5 ML NEBU INHALATION SCH (08:28)
[2024-07-11 08:52] LABS: Basophils # (A) 0.01 X 10*3/uL (0.00-0.10); Basophils % (A) 0.1 %; Eosinophils # (A) 0 X 10*3/uL (0.04-0.35); Eosinophils % (A) 0 %; HCT 31.3 % (39.6-50.0); HGB 9.8 g/dL (13.0-17.0); Lymphocytes # (A) 0.85 X 10*3/uL (0.90-5.00); Lymphocytes % (A) 9.8 %; MCH 28.2 pg (27.0-32.0); MCHC 31.3 g/dL (32.0-37.0); MCV 89.9 FL (80.0-97.0); Mean Platelet Volume 9.6 FL (9.5-12.2); Monocytes # (A) 0.87 X 10*3/uL (0.20-1.00); Monocytes % (A) 10.1 %; NRBC Per 100 WBC 0 X 10*3/uL (0.00-0.01); Neutrophils # (A) 6.89 X 10*3/uL (1.80-7.70); Neutrophils % (A) 79.7 %; Platelet Count 179 X 10*3/uL (140-440); RBC 3.48 X 10*6/uL (4.40-5.60); RDW 14.5 % (11.5-14.5); WBC 8.65 X 10*3/uL (4.50-10.00)
--- NOTE | 2024-07-11 08:57 | P.DS ---
Providers Expected date of discharge: 07/11/24 Attending physician: Man Bernal Consults: 07/10/24 08:39 Consult Physician Routine Consulting Provider: Tayo Bates Reason/Comments: medical management Do you want consulting provider notified?: Yes Primary care physician: Tayo Bates - Discharge Diagnosis(es) (1) Osteoarthritis of right hip Current Visit: Yes Status: Acute (2) S/P total hip arthroplasty Current Visit: Yes Status: Acute Hospital Course: This is a 78-year-old male with known history of degenerative arthritis of the right hip. The patient presented for evaluation as an outpatient. After discussion and consideration patient elects to proceed with total hip arthroplasty. The patient is seen preoperatively by Dr. Bernal and medically cleared for surgery by their primary care physician. Patient is admitted to [facility] on 07/10/2024 for total hip arthroplasty. The procedure is performed without complication or sequelae. The patient is doing well postoperatively. Labs and vital signs are stable on day of discharge. On day of discharge patient's hip incision is healing well. There is minimal erythema. There is no drainage noted at this time. There is minimal soft tissue swelling to the hip and thigh. Patient has full foot and ankle motion without difficulty or pain. Calf is soft and nontender to palpation. Neurovascular status to the right lower extremity is intact. Patient is discharged home in good condition. Please see med rec for accurate list of home medications. Plan - Discharge Summary Discharge Rx Participant: No New Discharge Prescriptions: New HYDROcodone/APAP 7.5-325MG [[place] 7.5-325] 1 - 2 tab PO Q6H PRN #32 tab PRN Reason: Pain Sennosides [Senokot] 2 tab PO DAILY PRN #60 tablet PRN Reason: Constipation No Action Tiotropium [place] [Spiriva] 1 cap INHALATION RT-DAILY Budesonide/Formoterol Fumarate [Symbicort 160-4.5 Mcg Inhaler] 2 puff INHALATION RT-BID Calcium Citrate/Vitamin D3 [Calcitrate + Vit D Caplet] 1 tab PO QAM Ascorbic Acid [Vitamin C] 1,000 mg PO QAM Vits A,C,E/Lutein/Minerals [Ocuvite with Lutein Tablet] 1 tab PO BID Rosuvastatin [Crestor] 20 mg PO HS Montelukast Sodium 10 mg PO HS Ipratropium-Albuterol Nebulize [Duoneb 0.5 mg-3 mg/3 ml Soln] 3 ml INHALATION QAM PRN PRN Reason: Shortness Of Breath Apixaban [Eliquis] 5 mg PO BID metFORMIN HCL ER [Glucophage XR] 1,000 mg PO HS Spironolactone [Aldactone] 25 mg PO QAM Metoprolol Tartrate [Lopressor] 12.5 mg PO BID Budesonide [Pulmicort] 0.5 mg INHALATION QAM Discharge Medication List Tiotropium [place] [Spiriva] 1 cap INHALATION RT-DAILY 05/15/15 [History] Ascorbic Acid [Vitamin C] 1,000 mg PO QAM 05/11/18 [History] Budesonide/Formoterol Fumarate [Symbicort 160-4.5 Mcg Inhaler] 2 puff INHALATION RT-BID 05/11/18 [History] Calcium Citrate/Vitamin D3 [Calcitrate + Vit D Caplet] 1 tab PO QAM 05/11/18 [History] Vits A,C,E/Lutein/Minerals [Ocuvite with Lutein Tablet] 1 tab PO BID 05/11/18 [History] Apixaban [Eliquis] 5 mg PO BID 07/04/24 [History] Budesonide [Pulmicort] 0.5 mg INHALATION QAM 07/04/24 [History] Metoprolol Tartrate [Lopressor] 12.5 mg PO BID 07/04/24 [History] Montelukast Sodium 10 mg PO HS 07/04/24 [History] Rosuvastatin [Crestor] 20 mg PO HS 07/04/24 [History] Spironolactone [Aldactone] 25 mg PO QAM 07/04/24 [History] metFORMIN HCL ER [Glucophage XR] 1,000 mg PO HS 07/04/24 [History] Ipratropium-Albuterol Nebulize [Duoneb 0.5 mg-3 mg/3 ml Soln] 3 ml INHALATION QAM PRN 07/06/24 [History] HYDROcodone/APAP 7.5-325MG [[place] 7.5-325] 1 - 2 tab PO Q6H PRN #32 tab 07/10/24 [Rx] Sennosides [Senokot] 2 tab PO DAILY PRN #60 tablet 07/10/24 [Rx] Follow up Appointment(s)/Referral(s): Man Bernal DO [Doctor of Osteopathic Medicine] - 2 Weeks Activity/Diet/Wound Care/Special Instructions: Weightbearing as tolerated with walker. Leave dressing intact. Dressing may be removed by home care nurse or by patient in 7 days. Then change dressing twice daily until follow up. May shower with initial dressing intact and after removal. If dressing become saturated, please remove. Please resume Eliquis. Recommend use of compression stockings daily until follow up to help prevent swelling and blood clots. May remove at night before sleeping. Please follow[facility]up with [facility] weeks and call with any questions or concerns, . Discharge Disposition: HOME WITH HOME HEALTH SERVICES
[2024-07-11 08:58] VITALS: BP 109/65; PULSE 58; RESP 17; TEMP 97.6
--- NOTE | 2024-07-12 20:14 | P.PN ---
Subjective Progress Note Date: 07/11/24 Patient pleasant 72-year-old male admitted for right hip arthroplasty. Patient is pain-free at this time patient denied any nausea vomiting abdominal pain fever chills patient does have a history of atrial fibrillation because of which patient is on metoprolol patient is on a very low-dose of metoprolol patient has mild sinus bradycardia. Patient is on also on anticoagulation with Eliquis 5 mg p.o. twice daily 07/12/2024 Patient evaluated sitting up in the bed. No acute complaints overnight. He is postoperative right hip arthroplasty. Pain is controlled. He has been cleared by orthopedics for DC home. He has been resumed on his eliquis. REVIEW OF SYSTEMS: All other systems are negative except those mentioned in the HPI PHYSICAL EXAMINATION: GENERAL: The patient is alert and oriented x3, not in any acute distress. Well developed, well nourished. HEENT: Pupils are round and equally reacting to light. EOMI. No scleral icterus. No conjunctival pallor. Normocephalic, atraumatic. No pharyngeal erythema. No thyromegaly. CARDIOVASCULAR: S1 and S2 present. No murmurs, rubs, or gallops. PULMONARY: Chest is clear to auscultation, no wheezing or crackles. ABDOMEN: Soft, nontender, nondistended, normoactive bowel sounds. No palpable organomegaly. MUSCULOSKELETAL: No joint swelling or deformity. Surgical site areas are packed EXTREMITIES: No cyanosis, clubbing, or pedal edema. NEUROLOGICAL: Gross neurological examination did not reveal any focal deficits. SKIN: No rashes. Assessment and plan -Postoperative right hip arthroplasty -Mild sinus bradycardia: Patient is asymptomatic can resume low-dose of beta- ling. -Atrial fibrillation paroxysmal on anticoagulation which will be resumed -COPD without any acute exacerbation -Type 2 diabetes mellitus metformin will be resumed monitor blood sugars sliding scale insulin -Gastroesophageal reflux disease -Hyperlipidemia -Hip arthroplasty management as per primary service DVT prophylaxis: On Eliquis The impression and plan of care has been dictated by Serene Tsai, Nurse Practitioner as directed. Dr. Tone MD I have performed a history and physical examination and medical decision making of this patient, discussed the same with the dictator, and agree with the dictators assessment and plan as written, documented as a scribe. Based on total visit time, I have performed more than 50% of this visit. Objective - Vital Signs Vital signs: Vital Signs Temp 97.6 F 07/11/24 07:05 Pulse 74 07/11/24 08:28 Resp 17 07/11/24 07:05 BP 109/65 07/11/24 07:05 Pulse Ox 95 07/11/24 07:05 FiO2 - Labs CBC & Chem 7: 07/11/24 03:29 Assessment and Plan Time with Patient: Less than 30
== END 2024-07-11 11:33 | disposition home health service (06) ==
LOC: OR 05:34 → 4SSUR 09:46 → OR 07-11 11:33
PROVIDERS: ATTEND Orthopaedic Surgery
DX: M16.11 Unilateral primary osteoarthritis, right hip (principal); E11.9 Type 2 diabetes mellitus without complications; E78.5 Hyperlipidemia, unspecified; G89.18 Other acute postprocedural pain; I48.0 Paroxysmal atrial fibrillation; J44.89 Other specified chronic obstructive pulmonary disease; K21.9 Gastro-esophageal reflux disease without esophagitis; Z79.01 Long term (current) use of anticoagulants; Z79.51 Long term (current) use of inhaled steroids; Z79.84 Long term (current) use of oral hypoglycemic drugs; Z87.891 Personal history of nicotine dependence; Z82.61 Family history of arthritis; Z79.899 Other long term (current) drug therapy; Z96.651 Presence of right artificial knee joint
CPT/HCPCS: 27130; 94640 ×3; 97161; 97166; 64999; 85025; 73501; C1776; J2250; J1100; J0690 ×2; J2405; J2795